=== PATIENT | male | born 1940 | race Caucasian/White ===

== ENCOUNTER → 2016-08-09 | Outpatient (CLI) | payer OTHER, BC | LOC: FIMAGING 17:01 | PROVIDERS: ATTEND Nurse Practitioner Family | DX: R68.89 Other general symptoms and signs (principal); R05 Cough; R51 Headache ==

== ENCOUNTER 2018-01-31 11:08 | Emergency (ER) | payer OTHER, BC ==
--- NOTE | 2018-01-31 11:19 | EDPHY ---
H & P Stated Complaint: HX AFIB IRREGULAR HR LAST FFEW DAYS Time Seen by Provider: 01/31/18 11:17 - Personal History Current Tetanus Diphtheria and Acellular Pertussis (TDAP): Unsure - Medical/Surgical History Hx Asthma: No Hx Chronic Respiratory Disease: No Hx Diabetes: No Hx Cardiac Disease: Yes Hx Renal Disease: No Hx Cirrhosis: No Hx Alcoholism: No Hx HIV/AIDS: No Hx Splenectomy or Spleen Trauma: No Other PMH: medical- afib, arthritis, HLD. surgical- ablation - Social History Smoking Status: Never smoked Constitutional: Initial Vital Signs Temperature (C) 36.3 C 01/31/18 11:11 Heart Rate 55 L 01/31/18 11:11 Respiratory Rate 18 01/31/18 11:11 Blood Pressure 133/73 H 01/31/18 11:11 O2 Sat (%) 96 01/31/18 11:11 O2 Delivery Mode Room Air Allergies/Adverse Reactions: No Allergies [NKDA] Allergy (Verified 01/31/18 11:09) Home Medications: Medication Instructions Recorded Aspirin 81mg (OTC) 09/20/13 Atorvastatin Calcium 01/31/18 Pen Vk 250mg (*) 01/31/18 Medical Decision Making ED Course/Re-evaluation: CHIEF COMPLAINT: Fatigue, irregular heart rate HISTORY OF PRESENT ILLNESS: The patient is a 77 y/o male with a history of atrial fibrillation requiring an ablation complaining of fatigue and an irregular heart rate, onset two days ago. For the past two days the patient did not feel normal and thought that he was in a-fib again as he thought there was an irregular heart rate. These symptoms were similar to prior a-fib episodes. This morning he felt okay and didn't feel like there was an irregular heart rate. Due to his symptoms his PCP , Dr. Arcos, advised the patient to present to the emergency department. Denies headache, chest pain, shortness of breath, abdominal pain, urinary or bowel complaints, numbness, paresthesias, fevers. REVIEW OF SYSTEMS: A comprehensive 10 system review of systems is otherwise negative aside from elements mentioned in the history of present illness and medical decision making. PHYSICAL EXAM: HR, BP, O2 Sat, RR. Temp noted General Appearance: Alert, well hydrated, appropriate, and non-toxic appearing. Head: Atraumatic without scalp tenderness or obvious injury Eyes: Pupils equal, round, reactive to light and accommodation, EOMI, no trauma , no injection. Ears: Clear bilaterally, no perforation, normal landmarks Nose: Atraumatic, no rhinorrhea, clear. Throat: There is no erythema or exudates, no lesions, normal tonsils, mucus membranes moist. Neck: Supple, 2+ carotid upstroke, nontender, no lymphadenopathy. Respiratory: No retractions, no distress, no wheezes, and no accessory muscle use. Lungs are clear to auscultation bilaterally. Cardiovascular: Regular rate and rhythm, no murmurs, rubs, or gallops. Bilateral carotid, radial, dorsalis pedis, and posterior tibial pulses intact. Good capillary refill all extremities. Gastrointestinal: Abdomen is soft, nontender, non-distended, no masses, no rebound, no guarding, no peritoneal signs. Musculoskeletal: Normal active ROM of all extremities, atraumatic. Neurological: Alert, appropriate, and interactive. The patient has normal DTRs and non-focal cranial nerves, motor, sensory, and cerebellar exam. Skin: No rashes, good turgor, no nodules on palpation. Past medical history: Atrial fibrillation, arthritis, hyperlipidemia Past surgical history: Ablation (15 years ago) Family history: Denies Social history: at bedside, lives in [place], retired DIAGNOSTICS/PROCEDURES/CRITICAL CARE TIME: EKG: The 12 lead EKG was interpreted by myself as sinus rhythm with a rate of 60 , atrial premature complex, nonspecific intraventricular conduction delay. See hard copy and/or "tracemaster" electronic copy for interpretation. DIFFERENTIAL DIAGNOSIS: The differential diagnosis for the patient's fatigue included but was not limited to peripheral and central causes of vertigo, orthostatic causes including dehydration, cardiogenic and neurogenic causes, and blood loss. MEDICAL DECISION MAKING: The patient is a 77 y/o male with a history of atrial fibrillation requiring an ablation presenting with fatigue and an irregular heart rate, onset two days ago. He is currently asymptomatic. On exam he has a regular exam with a regular cardiac exam. Labs including a Chem8 and IStat and EKG ordered. 1118: I interpreted patient's EKG as sinus rhythm with a rate of 60. 1202: I consulted with Dr. Thomas, specification manager, regarding this patient. She agrees with my plan for outpatient follow up with Dr. Cox. 1204: Patient's labs are unremarkable. I have advised him to follow up with Dr. Cox, specification manager, for further work up. Patient's symptoms are consistent with premature atrial contractions and possible atrial fibrillation at home. Return precautions provided; patient is comfortable with this plan. - Data Points Laboratory Results: 01/31/18 01/31/18 11:41 11:41 POC Hgb 16.0 gm/dL gm/dL (13.7-17.5) POC Hct 47 % % (40-51) POC Sodium 139 mEq/L mEq/L (135-145) POC Potassium 4.2 mEq/L mEq/L (3.3-5.0) POC Chloride 104 mEq/L mEq/L (97-110) POC BUN 15 mg/dL mg/dL (7-23) POC Creatinine 0.7 mg/dL mg/dL (0.7-1.3) POC Glucose 84 mg/dL mg/dL (70-100) POC Troponin I 0.01 ng/mL ng/mL (0.00-0.08) Point of Care Test Results: Chemistry 01/31/18 01/31/18 11:41 11:41 POC Sodium 139 mEq/L mEq/L (135-145) POC Potassium 4.2 mEq/L mEq/L (3.3-5.0) POC Chloride 104 mEq/L mEq/L (97-110) POC BUN 15 mg/dL mg/dL (7-23) POC Creatinine 0.7 mg/dL mg/dL (0.7-1.3) POC Glucose 84 mg/dL mg/dL (70-100) POC Troponin I 0.01 ng/mL ng/mL (0.00-0.08) ISTAT H&H 01/31/18 11:41 POC Hgb 16.0 gm/dL gm/dL (13.7-17.5) POC Hct 47 % % (40-51) Departure - Departure Disposition: Home, Routine, Self-Care Clinical Impression: PAC (premature atrial contraction), possible atrial-fibrillation at home Fatigue Qualifiers: Fatigue type: other Qualified Code(s): R53.83 - Other fatigue Condition: Good Instructions: Fatigue (ED), Premature Atrial Contractions (ED) Additional Instructions: 1. Follow-up with your primary doctor within 72 hours. 2. Return to the Emergency Department for fever, chest pain, shortness of breath , increasing pain or other worsening of condition. 3. Follow up with a specification manager for further testing, as soon as possible, within one week. We would be happy to reevaluate you and observe you in the hospital at any time. Referrals: Oscar Arcos DO [Primary Care Provider] - As per Instructions Ha Cox MD [Medical Doctor] - As per Instructions Report Scribed for: Tyrone Us Report Scribed by: Pita Keller Date of Report: 01/31/18 Time of Report: 11:21
--- NOTE | 2018-01-31 11:53 | CPEKG ---
Test Reason : OPEN Blood Pressure : / mmHG Vent. Rate : 060 BPM Atrial Rate : 061 BPM P-R Int : 155 ms QRS Dur : 158 ms QT Int : 437 ms P-R-T Axes : 130 206 006 degrees QTc Int : 437 ms Sinus rhythm Atrial premature complex Nonspecific intraventricular conduction delay Confirmed by Tyrone Us ([id number]) on 01/31/2018 11:53:39 AM Referred By: Confirmed By:Tyrone Us
[2018-01-31 12:29] VITALS: BP 122/69
== END 2018-01-31 12:28 | disposition home or self-care (01) ==
DX: I49.1 Atrial premature depolarization (principal); R53.83 Other fatigue
CPT/HCPCS: 82435-PO; 82565-PO; 82947-PO; 84132-PO; 84295-PO; 84484-PO; 84520-PO; 85014-PO

== ENCOUNTER → 2018-03-30 | Outpatient (CLI) | payer OTHER, BC | LOC: FIMAGING 09:39 | PROVIDERS: ATTEND Family Medicine | DX: R05 Cough (principal); M17.12 Unilateral primary osteoarthritis, left knee; M11.262 Other chondrocalcinosis, left knee ==

== ENCOUNTER → 2018-05-05 | Outpatient (CLI) | payer OTHER, BC | LOC: BHLMT 14:00 | PROVIDERS: ATTEND Internal Medicine Interventional Cardiology | DX: I47.2 Ventricular tachycardia (principal) | CPT/HCPCS: 78452; 93017; A9500; J2785 ==

== ENCOUNTER → 2018-05-13 | Outpatient (CLI) | payer OTHER, BC | LOC: FCPNEURO 23:59 | PROVIDERS: ATTEND Psychiatry & Neurology Sleep Medicine | DX: G47.33 Obstructive sleep apnea (adult) (pediatric) (principal) ==

== ENCOUNTER 2018-05-21 06:50 | Day surgery (SDC) | payer OTHER, BC ==
[2018-05-21] MEDS ORDERED: diphenhydrAMINE 25 MG CAP PO ONE (07:01)
[2018-05-21] MEDS ORDERED: FAMOTIDINE 20 MG TAB PO ONE (07:01)
[2018-05-21] MEDS ORDERED: ASPIRIN EC 325 MG TAB PO ONE (07:01)
[2018-05-21] MEDS ORDERED: DIAZEPAM 5 MG TAB PO ONE (07:01)
[2018-05-21] MEDS ORDERED: NS 1,000 ML IV ONE (07:01)
[2018-05-21 07:38] LABS: PLATELET COUNT 279 10^3/uL (150-400)
[2018-05-21 07:47] LABS: INR 1.06 (0.83-1.16)
--- NOTE | 2018-05-21 09:36 | PDHPUP ---
History & Physical Update H&P update statement: This history and physical update is based on an assessment of the patient which was completed after admission or registration (within 24 hours), but prior to the surgery/procedure. H&P update: H&P reviewed & patient examined, no change in patient's condition since H&P completed
--- NOTE | 2018-05-21 09:36 | PDPROPOC ---
Sedation Plan of Care Sedation Plan of Care: vital signs stable, mental status noted, patient educated of risks, benefits, alternatives, patient can tolerate sedation ASA Classification: ASA 2 Planned drugs: fentanyl, midazolam Mallampati Score: Class 2 Mallampati Reference Image: Patient passed 3-3-2 rule?: Yes
[2018-05-21] MEDS ORDERED: fentaNYL 100 MCG/2 ML INJ ONE (09:42)
[2018-05-21] MEDS ORDERED: MIDAZOLAM 2 MG/2 ML VIAL ONE (09:42)
[2018-05-21] MEDS ORDERED: IOPAMIDOL (ISOVUE-370) 150 ML BTL IV ONE (09:42)
[2018-05-21] MEDS ORDERED: LIDOCAINE 1% 300 MG/30 ML SDV ONE (09:42)
--- NOTE | 2018-05-21 11:29 | CPIP ---
DATE OF PROCEDURE: 05/21/2018 PROCEDURE: 1. Coronary angiography. 2. Left ventriculography. INDICATION: Abnormal nuclear stress test with apical ischemia. ACCESS: Patient was prepped and draped in sterile fashion. 1% lidocaine was used to anesthetize the right inguinal region. A 6-Mongolian introducer sheath was placed selectively into the right common fe moral artery via modified Seldinger technique. CORONARY ANGIOGRAPHY: A 6-Mongolian JL4 was advanced to left main coronary artery and images obtained. The left main coronary artery bifurcated into an LAD and circumflex coronary arteries. The left josh n coronary artery appeared normal. The left anterior descending coronary artery gave rise to 2 diago nal branches. The left anterior descending coronary artery had a long segmental 20% to 30% stenosis in the mid vessel just after the takeoff of the first diagonal artery. The circumflex coronary arter y is a large vessel, but was nondominant. Circumflex coronary artery had mild luminal irregularities throughout. There was no stenosis greater than 10%. A 6-Mongolian JR4 was advanced to the right coron keyona artery and images obtained. The right coronary artery was dominant. The right coronary artery h ad a discrete 20% to 30% percent stenosis in the distal vessel. LEFT VENTRICULOGRAPHY: A 6-Mongolian pigtail catheter was advanced in the left ventricle and images obt ained. Left ventricle was normal in size. The left ventricle had reduced left ventricular systolic function. The estimated ejection fraction was 45% to 50% . COMPLICATIONS: None. CONCLUSIONS: 1. Mild coronary artery disease without flow limitation. 2. Mildly reduced left ventricular systolic function with estimated ejection fraction of 45% to 50%. 3. Plan is for medical management. /[id number]/MODL
--- NOTE | 2018-05-22 17:24 | CPEKG ---
Test Reason : OPEN Blood Pressure : / mmHG Vent. Rate : 060 BPM Atrial Rate : 060 BPM P-R Int : 146 ms QRS Dur : 149 ms QT Int : 420 ms P-R-T Axes : 081 199 -17 degrees QTc Int : 420 ms Sinus rhythm RBBB Confirmed by Jaun Salazar ([id number]) on 05/22/2018 5:24:19 PM Referred By: Confirmed By:Jaun Salazar
== END 2018-05-21 12:50 | disposition home or self-care (01) ==
LOC: FCATH 06:50
PROVIDERS: ATTEND Internal Medicine Cardiovascular Disease
PROC: 4A023N7 Measurement of Cardiac Sampling and Pressure, Left Heart, Percutaneous Approach (ICD-10-PCS; principal; 2018-05-21)
PROC: B2151ZZ Fluoroscopy of Left Heart using Low Osmolar Contrast (ICD-10-PCS; principal; 2018-05-21)
PROC: B2111ZZ Fluoroscopy of Multiple Coronary Arteries using Low Osmolar Contrast (ICD-10-PCS; principal; 2018-05-21)
DX: I25.10 Atherosclerotic heart disease of native coronary artery without angina pectoris (principal); I49.3 Ventricular premature depolarization; Z96.21 Cochlear implant status; Z86.79 Personal history of other diseases of the circulatory system
CPT/HCPCS: C1760; J1644; J2250; J3010; Q9967

== ENCOUNTER 2018-06-10 07:25 | Observation (INO) | payer OTHER, BC ==
--- NOTE | 2018-05-28 16:18 | GHP ---
DATE OF ADMISSION: 06/10/2018 He will be an a.m. admission for surgery on June 10, 2018. PROBLEM: Left knee severe degenerative arthritis. HISTORY OF PRESENT ILLNESS: The patient is a 77-year-old man admitted for a left total knee arthropl asty. He has a several month history of progressive pain and swelling in his left knee. The knee be came painful after working out on a treadmill. He feels like the knee is going to collapse. It is p ainful going up and down stairs. Evaluation shows severe left patellofemoral arthritis. He is admit maureen for a left total knee arthroplasty. PAST MEDICAL HISTORY: He is treated for elevated cholesterol. He also takes finasteride for prostat e problems. He has had a previous TUR. He has a history of atrial fibrillation, which was treated w ith an ablation. Dr. Cox is his agriculture scientist. No history of stents, DVT, hepatitis, or MRSA staph i nfections, or bleeding problems. He recently had a sleep study and was told that he had sleep apnea. He is in the process of getting a CPAP machine. CURRENT MEDICATIONS: Atorvastatin 20 mg per day, finasteride 5 mg per day, tamsulosin 0.4 mg per day . He also takes a full-size aspirin daily, but he stopped it 5 days prior surgery. ALLERGIES: Drug allergies: Epinephrine provoked atrial fibrillation attack. Metal allergy: None. Latex allergy: None. SOCIAL HISTORY: The patient is . He is retired. He does not smoke cigarettes and rarely dri nks alcohol. PHYSICAL EXAMINATION: VITAL SIGNS: Height 6 feet, weight 169 pounds. BMI 22.9. HEENT: Eyes: Con junctivae and sclerae are clear. Pupils are round and reactive. Mouth: Good oral hygiene. No loos e teeth. CHEST: Clear. HEART: Regular rhythm. No murmurs. EXTREMITIES: Pertinent findings are limited to his left knee. He has a large effusion. He lacks 10 degrees of full extension and flexes to 110 degrees. His collateral ligaments are stable. He has very coarse patellofemoral crepitation with active knee extension. IMAGING: His films show severe patellofemoral arthritis. IMPRESSION ON ADMISSION: 1. Left knee severe arthritis primarily involving the patellofemoral joint. He is prepared for a le ft total knee arthroplasty. 2. History of atrial fibrillation. 3. Treatment for elevated cholesterol. 4. History of prostate problems, status post transurethral resection of the prostate. 5. History of a right total ankle arthroplasty. PLAN: He will undergo a left total knee arthroplasty. The surgery has been described to him, includ ing the risks, complications, expectations, and recovery time. I have stressed the importance of pos toperative physical therapy. Advised him that a small percentage of people do not get a satisfactory result with a total knee replacement. All his questions have been answered and he consents to surge ry. /[id number]/MODL
[~2018-06-10 07:25] MED LIST: POVIDONE-IODINE 20 ML in SODIUM CL IRRIG SOLUTION 500 ML IRR ONE; TRANEXAMIC ACID 1,000 MG in NS 100 ML IV ONE; TRANEXAMIC ACID 3,000 MG in NS (SYRINGE) 50 ML IRR ONE
[2018-06-10] MEDS ORDERED: ceFAZolin 2 GM/DEXTROSE 100 ML IV ONE (08:00)
[2018-06-10] MEDS ORDERED: ONDANSETRON 4 MG/2 ML VIAL IVP ONE (08:00)
[2018-06-10] MEDS ORDERED: DEXAMETHASONE 4 MG/ML VIAL IVP ONE (08:00)
[2018-06-10] MEDS ORDERED: ACETAMINOPHEN 325 MG TAB PO ONE (08:00)
[2018-06-10] MEDS ORDERED: FAMOTIDINE 20 MG TAB PO ONE (08:00)
[2018-06-10] MEDS ORDERED: GABAPENTIN 300 MG CAP PO ONE (08:00)
[2018-06-10] MEDS ORDERED: LIDOCAINE 1% 2 ML INJ ID PRN (08:01)
[2018-06-10] MEDS ORDERED: LR 1,000 ML IV ONE (08:01)
[2018-06-10] MEDS ORDERED: TRANEXAMIC ACID 3,000 MG in NS (SYRINGE) 50 ML IRR ONE (09:00)
--- NOTE | 2018-06-10 09:02 | PDANEPAE ---
ANE Past Medical History - Cardiovascular History Hx Hypertension: No Hx Arrhythmias: Yes Hx Chest Pain: No Hx Coronary Artery / Peripheral Vascular Disease: No Hx CHF / Valvular Disease: No Hx Palpitations: No Cardiovascular History Comment: hx Afib - Pulmonary History Hx COPD: No Hx Asthma/Reactive Airway Disease: No Hx Recent Upper Respiratory Infection: No Hx Oxygen in Use at Home: No Hx Sleep Apnea: Yes Sleep Apnea Screening Result - Last Documented: Positive Pulmonary History Comment: [place] +, recent disgnosis - in the process of getting a Cpap - Neurologic History Hx Cerebrovascular Accident: No Hx Seizures: No Hx Dementia: No - Endocrine History Hx Diabetes: No - Renal History Hx Renal Disorders: Yes Renal History Comment: hx of BPH - Liver History Hx Hepatic Disorders: No - Neurological & Psychiatric Hx Hx Neurological and Psychiatric Disorders: No - Cancer History Hx Cancer: No - Congenital Disorder History Hx Congenital Disorders: No - GI History Hx Gastrointestinal Disorders: No - Other Health History Other Health History: cochlear implant on right, wears bilateral hearing aids. wears glasses. very dry skin - Chronic Pain History Chronic Pain: No - Surgical History Prior Surgeries: TURP 2010. right ankle replacement. ablations for A fib. cochlear implant on right. oral surgery for dental implants. appendectomy ANE Review of Systems Review of Systems: - Exercise capacity METS (RN): 4 METS ANE Patient History - Allergies Allergies/Adverse Reactions: epinephrine Allergy (Verified 06/03/18 10:34) Afib recurrence when given for dental procedure - Home Medications Home Medications: Aspirin [Aspirin 81mg (*)] 263 mg PO DAILY 05/21/18 [Last Taken 06/05/18] Atorvastatin Calcium [Lipitor 20 mg (*)] 20 mg PO DAILY 05/21/18 [Last Taken 01/18 21:00] C/E/Zn/Cu/OM3/DHA/EPA/LUT/ZEAX [Preservision Areds 2 Softgel] 1 each PO BID [Last Taken 06/05/18] Cholecalciferol Vit D3 [Vitamin D3 2000 units tab (OTC)] 4,000 units PO DAILY [Last Taken 06/05/18] Finasteride [Proscar 5 MG (*)] 5 mg PO DAILY 05/21/18 [Last Taken 06/09/18 21:00 ] Herbals/Supplements -Info Only 1 ea PO DAILY 05/21/18 [Last Taken 06/05/18] Triamcinolone 0.1% [Triamcinolone 0.1% Cream (*)] 1 kenan TP BID 05/21/18 [Last Taken 06/09/18] - Smoking Hx Smoking Status: Never smoked - Family Anes Hx Family Hx Anesthesia Complications: none ANE Labs/Vital Signs - Vital Signs Height: 182.88 cm Weight: 77.111 kg ANE Physical Exam - Airway Neck exam: FROM Mallampati Score: Class 1 Mouth exam: normal dental/mouth exam - Pulmonary Pulmonary: clear to auscultation - Cardiovascular Cardiovascular: regular rate and rhythym - ASA Status ASA Status: II ANE Anesthesia Plan Anesthesia Plan: spinal Regional Anesthesia: adductor canal FNB
[2018-06-10] MEDS ORDERED: TRANEXAMIC ACID 3,000 MG/50 ML BAG IRR ONE (09:39)
[2018-06-10] MEDS ORDERED: VANCOMYCIN 1 GM VIAL ONE ×2 (09:39→10:57)
[2018-06-10] MEDS ORDERED: ceFAZolin 1 GM/5 ML SYR ONE (09:40)
--- NOTE | 2018-06-10 10:05 | PDHPUP ---
History & Physical Update H&P update statement: This history and physical update is based on an assessment of the patient which was completed after admission or registration (within 24 hours), but prior to the surgery/procedure. H&P update: H&P reviewed & patient examined
[2018-06-10] MEDS ORDERED: MIDAZOLAM 2 MG/2 ML VIAL IVP ONE (10:24)
[2018-06-10] MEDS ORDERED: MIDAZOLAM 2 MG/2 ML VIAL ONE (10:28)
[2018-06-10] MEDS ORDERED: ROPIVACAINE IU ONE (10:30)
[2018-06-10] MEDS ORDERED: KETOROLAC TROMETHAMINE IU ONE (10:30)
[2018-06-10] MEDS ORDERED: PROPOFOL/EMULSION 500 MG/50 ML BOTTLE IV ONE (10:34)
[2018-06-10] MEDS ORDERED: BUPIVACAINE/DEXTROSE 7.5MG/ML 2 ML SPINAL AMP SP ONE (10:36)
[2018-06-10] MEDS ORDERED: PHENYLEPHRINE HCL 100 MCG/ML SYR ONE (11:04)
[2018-06-10] MEDS ORDERED: ePHEDrine SULFATE 25 MG/5 ML SYR ONE (11:04)
[2018-06-10] MEDS ORDERED: PHENYLEPHRINE 10 MG/ML SDV ONE (11:19)
--- NOTE | 2018-06-10 11:35 | POSTANESTH ---
Post Anesthetic Evaluation Cardiovascular Status: Normal, Stable Respiratory Status: Normal, Stable Level of Consciousness/Mental Status: Can Participate in Eval Pain Control: Adequate, Prn Tx Ordered Nausea/Vomiting Control: Adequate, Prn Tx Ordered Complications Possibly Related to Anesthesia: None Noted
[2018-06-10] MEDS ORDERED: ROPIVACAINE HCL 150 MG/30 ML INJ ONE (12:07)
[2018-06-10] MEDS ORDERED: MEPERIDINE 25 MG/0.5 ML AMP IVP PRN (12:20)
[2018-06-10] MEDS ORDERED: ALBUTEROL 3 ML DEYVIAL IH PRN (12:20)
[2018-06-10] MEDS ORDERED: HYDROmorphONE/DILAUDID 2 MG/ML INJ IVP PRN (12:20)
[2018-06-10] MEDS ORDERED: DIAZEPAM 5 MG/ML 1 ML SYR IVP PRN (12:20)
[2018-06-10] MEDS ORDERED: ONDANSETRON 4 MG/2 ML VIAL IVP PRN ×2 (12:20→12:52)
[2018-06-10] MEDS ORDERED: PHENYLEPHRINE HCL 100 MCG/ML SYR IVP PRN (12:20)
[2018-06-10] MEDS ORDERED: PROMETHAZINE HCL 25 MG/ML INJ IVP PRN ×2 (12:20→12:52)
[2018-06-10] MEDS ORDERED: LR 500 ML IV PRN (12:20)
[2018-06-10] MEDS ORDERED: NALOXONE HCL 0.4 MG/ML INJ IVP PRN (12:20)
[2018-06-10] MEDS ORDERED: fentaNYL 100 MCG/2 ML INJ IVP PRN (12:20)
--- NOTE | 2018-06-10 12:30 | POSTOPPROG ---
Post Op Note Date of Operation: 06/10/18 Surgeon: Brooks Huerta Quality Assurance Lab Technician: Bill Anesthesiologist: Juan Antonio Lopez Anesthesia: IV Sedation, Spinal Post-op Diagnosis: left knee arthritis Procedure: L TKA Inf/Abcess present in the surg proc area at time of surgery?: No EBL: 50-100 (ACB in PACU)
[2018-06-10] MEDS ORDERED: DIPHENOXYLATE/ATROPINE LOMOTIL 1 TAB PO PRN (12:52)
[2018-06-10] MEDS ORDERED: METOCLOPRAMIDE 10 MG/2 ML VIAL IVP PRN (12:52)
[2018-06-10] MEDS ORDERED: BISACODYL 10 MG SUPP PR PRN (12:52)
[2018-06-10] MEDS ORDERED: LACTULOSE 20 GM/30 ML UDCUP PO PRN (12:52)
[2018-06-10] MEDS ORDERED: CYCLOBENZAPRINE 10 MG TAB PO PRN (12:52)
[2018-06-10] MEDS ORDERED: PROMETHAZINE HCL 25 MG SUPPR PR PRN (12:52)
[2018-06-10] MEDS ORDERED: ONDANSETRON DISINTEGRATING 4 MG TAB PO PRN (12:52)
[2018-06-10] MEDS ORDERED: diphenhydrAMINE 25 MG CAP PO PRN (12:52)
[2018-06-10] MEDS ORDERED: NS 500 ML IV PRN (12:52)
[2018-06-10] MEDS ORDERED: MAGNESIUM HYDROXIDE 30 ML UDCUP PO PRN (12:52)
[2018-06-10] MEDS ORDERED: TEMAZEPAM 15 MG CAP PO PRN (12:52)
[2018-06-10] MEDS ORDERED: traMADol 50 MG TAB PO PRN (12:52)
[2018-06-10] MEDS ORDERED: POLYETHYLENE GLYCOL 3350 17 GM PKT PO PRN (12:52)
[2018-06-10] MEDS ORDERED: oxyCODONE IR 5 MG TAB PO PRN (12:52)
[2018-06-10] MEDS ORDERED: LR 1,000 ML IV SCH (13:00)
[2018-06-10] MEDS: FINASTERIDE 5 MG TAB PO SCH (16:16)
--- NOTE | 2018-06-10 16:34 | GOP ---
DATE OF OPERATION: 06/10/2018 SURGEON: Brooks Huerta MD INTERIOR DESIGN COORDINATOR: Rambo Fernandez and Nikolay Milton. ANESTHESIA: Combination of Marcaine spinal, IV sedation, and adductor canal block by Dr. Tanisha Lopez. PREOPERATIVE DIAGNOSIS: Left knee severe degenerative arthritis. POSTOPERATIVE DIAGNOSIS: Left knee severe degenerative arthritis. PROCEDURE PERFORMED: On 06/10/2018, a left total knee arthroplasty. FINDINGS: DESCRIPTION OF PROCEDURE: The patient was given 2 g of IV Ancef preoperatively within 60 minutes of surgery. He also received 1000 mg of IV tranexamic acid. He was placed on the operating room table and given spinal anesthesia with Marcaine by Dr. Tanisha Lopez. He was then placed supine and given IV sed ation. A Dick catheter was not used. He wore a FELICITY stocking and SCD on the nonoperative leg. His left lower extremity was prepped with ChloraPrep from the upper thigh tourniquet to the tips of the t oes. It was draped free using sterile sheets, stockinette, and Ioban plastic adhesive drape. The lo wer leg was wrapped with compressive Coban. The leg was exsanguinated with elevation and a 6-inch co mpressive wrap, and the pneumatic tourniquet was inflated to 250 mmHg. The World Health Organization time-out was performed to verify the correct patient identity and the c orrect surgical side and site. The [place] time-out was also performed. The OpinionLabayo leg holding device was sterilely attached to the operating room table and used throughout the procedure to help position the knee. A straight midline incision made centered on the patella. Subcutaneous tissues were sharply divided, and hemostasis was obtained using electrocautery. A media l subcutaneous flap was developed, and capsule and synovium were opened in medial parapatellar fashio n. Extensive degenerative changes were present, particularly in the patellofemoral joint. He had de ep ridges eroded onto the patella and the lateral femoral condyle. His medial capsule and periosteum were elevated off the rim of the medial tibial plateau all the way around to the posteromedial corne r. His medial collateral ligament was just lightly released. In order to improve exposure, his patella was prepared first. The original thickness of the patella was measured. Large peripheral osteophytes were removed. I cut a flat surface on the back of the ruchi palomino. He was sized for a 41 mm round resurfacing component. I removed enough bone from the patella such that the remaining bone plus the thickness of the patellar component recreated the original thi ckness of the patella. The composite thickness was 24 mm. The intramedullary alignment guide system was used to set up the distal femoral cut. The distal femu r was cut in 5 degrees of valgus. Because of a preoperative flexion contracture and because I was us ing the posterior stabilized femoral component, I made a +2 mm cut on the distal femur. The sizing j ig was used to determine proper femoral sizing. He was a true size 7 without a shift. The 5-in-1 cu tting block was applied, and the anterior and posterior condylar cuts and chamfer cuts were made. Th e final jig was used to remove the central portion of the distal femur to accommodate the posterior s tabilized femoral component. I was careful to determine proper rotation. It was difficult because h is trochlear groove was badly deformed from arthritis. Each cut was checked for accuracy. The femur was sized for a size 7 posterior stabilized component. Next, the tibia was prepared. The proximal tibial cut was made using the extramedullary alignment gu kristal system. The cut was made in a few degrees of posterior slope. I was careful to achieve proper v arus/valgus alignment and proper rotation. The posterior compartment was cleared of meniscal remnant s. Osteophytes were removed from the back of the femoral condyles. The flexion and extension gaps w ere a little bit too tight. I went back and cut 2 more millimeters off the proximal tibia. At this point, the flexion and extension gaps were equal and rectangular. The tibia was sized for a size 6 c omponent. With the trial components in place, I selected a 10 mm polyethylene posterior stabilized t ibial insert. The knee came to full extension and flexed to 130 degrees. His collateral ligaments w ere stable and balanced in 90 degrees of flexion and full extension. The trial patellar button was a pplied, and tracking was checked. Tracking was excellent without any digital pressure. 40 cc of the joint anesthetic cocktail without epinephrine was injected into the posterior capsule, t he quadriceps muscle and tendon areas, and the subcutaneous tissues along the skin edges. The surfaces were prepared for cementing. They were carefully cleaned with the pulsating lavage irri gation and thoroughly dried. The CarboJet device was used to blow dry the cancellous surfaces. A do uble batch of high viscosity methylmethacrylate cement with 2 g of powdered vancomycin added was mixe d. While it was still in a doughy state, all 3 components were cemented in place. Excess cement was removed before it hardened. The 10 mm trial tibial insert was re-tried and was the proper thickness. The actual component was in serted and locked into place. The knee was thoroughly irrigated one final time with a dilute Betadin e solution. The tourniquet was deflated, and the total tourniquet time was 63 minutes. 50 cc of tranexamic acid was irrigated into the wound. The wound was packed and wrapped with a compressive wrap for several m inutes. The vastus medialis portion of the extensor mechanism was repaired with several interrupted figure-of -eight #2 FiberWire sutures. The capsule and synovium were closed first with multiple interrupted fi [id number] PDS sutures, followed by a running #2 barbed Ethicon Stratafix PDO suture. Subcutane ous tissues were closed with a running 0 barbed Ethicon Stratafix Monoderm suture. The skin was clos ed with a running 3-0 barbed Stratafix Monoderm subcuticular suture. The skin was sealed with 1/2-in ch Steri-Strips. The wound was covered with a large Mepilex waterproof dressing and wrapped with a K erlix and 6-inch compressive wrap. A long-leg FELICITY stocking and SCD were applied, followed by the neighborhood coordinator ling device. The patient wore a stocking and SCD on the opposite leg during the procedure. The sacr al Mepilex dressing was applied. I used a size 7 Jimenes and Nephew cemented Oxinium posterior stabilized femoral component, size 6 ceme nted tibial base plate, a 10 mm posterior stabilized tibial insert, and a 41 mm cemented round all-po lyethylene resurfacing patellar component. Estimated blood loss following deflation of the tourniquet was about 100 cc. The sponge and needle count were correct on 2 occasions. He was awakened from anesthesia, transferred to his hospital [facility], and taken to PACU in satisfactor y condition. There were no recognized intraoperative complications. In the PACU, for additional pos toperative pain control, Dr. Lopez performed an adductor canal block with an indwelling catheter. Rambo Fernandez and Nikolay Milton acted as surgical assistants. Their assistance was a medical necess ity. /[id number]/MODL
[2018-06-10] MEDS: ACETAMINOPHEN 325 MG TAB PO SCH (18:02)
[2018-06-10] MEDS: KETOROLAC 15 MG/1 ML SDV IVP SCH (18:03)
[2018-06-10] MEDS: SENNOSIDES/DOCUSATE SODIUM TAB PO SCH (20:15)
[2018-06-10] MEDS: PRESERVISION AREDS2 FORMULA EYE VIT 1 EACH PO SCH (20:16)
[2018-06-10] MEDS: FAMOTIDINE 20 MG TAB PO SCH (20:16)
[2018-06-10] MEDS: ASPIRIN 325 MG TAB PO SCH (20:17)
[2018-06-10] MEDS: ceFAZolin 2 GM/DEXTROSE 100 ML IV SCH (20:17)
[2018-06-10] MEDS: TRIAMCINOLONE 0.1% 15 GM CRTUBE TP SCH (21:27)
[2018-06-11] MEDS: ACETAMINOPHEN 325 MG TAB PO SCH ×3 (00:07→12:22)
[2018-06-11] MEDS: KETOROLAC 15 MG/1 ML SDV IVP SCH ×2 (00:07→05:48)
[2018-06-11] MEDS: ceFAZolin 2 GM/DEXTROSE 100 ML IV SCH (02:41)
--- NOTE | 2018-06-11 07:14 | SOAPPROG ---
SOAP Progress Note Assessment/Plan: Assessment: Afebrile. Awake and alert. The patient walked in the [place] last night. His blood pressure was a little low during the night, but it is stable this morning. His dressing is dry. H&H are good. Postop films look excellent. Plan: Physical therapy today for walking and stairs. Long leg alignment film. Discharge later today. He will go to outpatient physical therapy in [place], [place]. 06/11/18 07:13 Objective: Vital Signs Temp Pulse Resp BP Pulse Ox 36.7 C 63 16 100/50 L 92 06/11/18 04:00 06/11/18 04:00 06/11/18 04:00 06/11/18 04:00 06/11/18 04:00 Laboratory Results 06/11/18 04:16 06/10/18 06/11/18 06/12/18 05:59 05:59 05:59 Intake Total 2790 Output Total 850 600 Balance 1940 -600 ICD10 Worksheet Patient Problems: Problems Problem Status Onset Osteoarthritis of left knee Acute
[2018-06-11] MEDS ORDERED: FERROUS SULFATE 325 MG TAB PO SCH (08:00)
--- NOTE | 2018-06-11 08:14 | GDS ---
ADMISSION DIAGNOSIS: Left knee severe degenerative arthritis. DISCHARGE DIAGNOSIS: Left knee severe degenerative arthritis. OPERATION PERFORMED: 06/20/2018, A left total knee arthroplasty. POSTOPERATIVE COMPLICATIONS: None. CONDITION ON DISCHARGE: Improved. DESCRIPTION OF HOSPITAL COURSE: The patient was admitted to the hospital on the morning of surgery. His CBC, electrolytes, BUN, and creatinine were all normal. The same day, under a combination of Ma rcaine spinal, IV sedation, and adductor canal block, he underwent a left total knee arthroplasty. P ostoperatively, he was treated with multimodal DVT prophylaxis, including aspirin. On the first post operative day, his hemoglobin and hematocrit were 12.6 and 38.6. He was seen by Physical Therapy and made good progress with ambulation and stairs. By the time of discharge, he was afebrile and was in dependent walking with a walker. DISPOSITION: The patient discharged to his home. He will go to outpatient physical therapy [facility] in [place], [place]. Continue aspirin 325 mg p.o. daily for 21 days. He has prescriptions for oxy codone, tramadol, and Celebrex for pain control. Use FELICITY stockings for 1 week. He may weightbear as tolerated on the left. I will see him back in the office on 06/25/2017. If there any problems, he is to call me at the office. /[id number]/MODL
[2018-06-11] MEDS ORDERED: LIPID EMULSION 20% 100 ML IV PRN (08:43)
[2018-06-11] MEDS: ASPIRIN 325 MG TAB PO SCH (08:49)
[2018-06-11] MEDS: FINASTERIDE 5 MG TAB PO SCH (08:49)
[2018-06-11] MEDS: SENNOSIDES/DOCUSATE SODIUM TAB PO SCH (08:49)
[2018-06-11] MEDS: PRESERVISION AREDS2 FORMULA EYE VIT 1 EACH PO SCH (08:49)
[2018-06-11] MEDS: FAMOTIDINE 20 MG TAB PO SCH (08:49)
[2018-06-11] MEDS ORDERED: ROPIVACAINE HCL 150 MG/30 ML INJ ONE (08:50)
[2018-06-11] MEDS: TRIAMCINOLONE 0.1% 15 GM CRTUBE TP SCH (08:51)
[2018-06-11] MEDS ORDERED: ATORVASTATIN CALCIUM 20 MG TAB PO SCH (09:00)
--- NOTE | 2018-06-11 09:16 | PDPAINCON ---
Pain Management Consultation Patient referred by : Bradley - Subjective Pain at rest (/10): 4 Pain with activity (/10): 4 Pain is: low, well controlled Activity: able to ambulate - Objective Technique: continuous peripheral nerve block Site: femoral Continuous infusion: ropivicaine Catheter site: clean, dry, intact, no erythema/edema/exudate Sensory and motor exam: consistent with block Vital signs: stable - Assessment/Plan Assessment/Plan: pain well-controlled, continue current mgmt (30 ml 0.5% Ropivacaine injected and AC catheter removed. Pt doing well and pain is under control.)
[2018-06-11 09:37] VITALS: BP 118/66
--- NOTE | 2018-06-11 11:07 | ASMTLACE ---
LACE Length of stay for Answers: 2 days current admission Acuity / Level of Answers: Yes Care: Did the patient have an inpatient admission? Comorbidities - select Answers: Other Notes: AFib; HLD all that apply # of Emergency department Answers: 1-2 visits in the last 6 months Score: 7 Date Signed: 06/11/2018 11:06 AM Electronically Signed By:ADAM Gabriel
--- NOTE | 2018-06-11 11:08 | ASMTCMCOM ---
CM Note CM Note Notes: Pt medically stable for d/c. PT rec home/outpatient. MD rec outpatient. No CM d/c needs identified. Date Signed: 06/11/2018 11:07 AM Electronically Signed By:ADAM Gabriel
== END 2018-06-11 13:00 | disposition home or self-care (01) ==
LOC: F3N 07:25 → INTOOBSV 07:25 → F3N 14:01
PROVIDERS: ADMIT Orthopaedic Surgery; ATTEND Orthopaedic Surgery
PROC: 0SRD069 Replacement of Left Knee Joint with Oxidized Zirconium on Polyethylene Synthetic Substitute, Cemented, Open Approach (ICD-10-PCS; principal; 2018-06-10 10:00)
DX: M17.11 Unilateral primary osteoarthritis, right knee (principal); N42.9 Disorder of prostate, unspecified; G47.33 Obstructive sleep apnea (adult) (pediatric); Z96.21 Cochlear implant status; Z86.79 Personal history of other diseases of the circulatory system
CPT/HCPCS: 27447; 73560; 77073; 88311; 97110; 97116; 97161; 97165; C1713; C1776; J0690; J1100; J1885; J2250; J2370; J2405; J2704; J2795; J3370

== ENCOUNTER 2018-08-26 10:04 | Day surgery (SDC) | payer OTHER, BC ==
[2018-08-26] MEDS ORDERED: ceFAZolin 2 GM/DEXTROSE 100 ML IV ONE (10:29)
[2018-08-26] MEDS ORDERED: LR 1,000 ML IV ONE (10:32)
[2018-08-26] MEDS ORDERED: BUPIVACAINE 0.5% 30 ML SDV ONE (10:34)
--- NOTE | 2018-08-26 11:02 | PDANEPAE ---
ANE History of Present Illness Laparoscopic IH repair ANE Past Medical History - Cardiovascular History Hx Hypertension: No Hx Arrhythmias: Yes Hx Chest Pain: No Hx Coronary Artery / Peripheral Vascular Disease: Yes Hx CHF / Valvular Disease: No Hx Palpitations: No Cardiovascular History Comment: Afib 15 YRS AGO. ABLATION - Pulmonary History Hx COPD: No Hx Asthma/Reactive Airway Disease: No Hx Recent Upper Respiratory Infection: No Hx Oxygen in Use at Home: No Hx Sleep Apnea: Yes Sleep Apnea Screening Result - Last Documented: Positive Pulmonary History Comment: [place] +, recent disgnosis. UNABLE TO TOLERATE C-PAP - Neurologic History Hx Cerebrovascular Accident: No Hx Seizures: No Hx Dementia: No - Endocrine History Hx Diabetes: No - Renal History Hx Renal Disorders: Yes Renal History Comment: BPH - Liver History Hx Hepatic Disorders: No - Neurological & Psychiatric Hx Hx Neurological and Psychiatric Disorders: No - Cancer History Hx Cancer: No - Congenital Disorder History Hx Congenital Disorders: No - GI History Hx Gastrointestinal Disorders: No - Other Health History Other Health History: cochlear implant on right, wears bilateral hearing aids. wears glasses. very dry skin - Chronic Pain History Chronic Pain: Yes (LT INGUINAL AREA) - Surgical History Prior Surgeries: LT TOTAL KNEE 06/10/18. TURP 2009. right ankle replacement. ablations for A fib. cochlear implant on right. oral surgery for dental implants. appendectomy ANE Review of Systems Review of systems is: negative Review of Systems: - Exercise capacity METS (RN): 4 METS ANE Patient History - Allergies Allergies/Adverse Reactions: epinephrine Allergy (Verified 06/03/18 10:34) Afib recurrence when given for dental procedure - Home Medications Home medications: home medication list seen and reviewed Home Medications: C/E/Zn/Cu/OM3/DHA/EPA/LUT/ZEAX [Preservision Areds 2 Softgel] 1 each PO BID [Last Taken 06/05/18] Cholecalciferol Vit D3 [Vitamin D3 2000 units tab (OTC)] 4,000 units PO DAILY [Last Taken 06/05/18] Herbals/Supplements -Info Only 1 ea PO DAILY 05/21/18 [Last Taken 06/05/18] - NPO status NPO Status: no food or drink >8 hours - Anes Hx Anes Hx: no prior problems - Smoking Hx Smoking Status: Never smoked - Family Anes Hx Family Anes Hx: none Family Hx Anesthesia Complications: none ANE Labs/Vital Signs - Vital Signs Vital Signs: reviewed preoperatively; see RN documention for details Height: 185.42 cm Weight: 76.657 kg ANE Physical Exam - Airway Neck exam: FROM Mallampati Score: Class 2 Mouth exam: normal dental/mouth exam - Pulmonary Pulmonary: no respiratory distress - Cardiovascular Cardiovascular: regular rate and rhythym - ASA Status ASA Status: III ANE Anesthesia Plan Anesthesia Plan: general endotracheal anesthesia
[2018-08-26] MEDS ORDERED: MIDAZOLAM 2 MG/2 ML VIAL IVP ONE (11:03)
[2018-08-26] MEDS ORDERED: MIDAZOLAM 2 MG/2 ML VIAL ONE (11:06)
--- NOTE | 2018-08-26 11:21 | POSTOPPROG ---
Post Op Note Date of Operation: 08/26/18 Surgeon: Mario Alberto Contreras Aerial Hurricane Hunter: JENN MAYERS Anesthesiologist: MANDEEP Anesthesia: GET(General Endotracheal) Pre-op Diagnosis: LIH Post-op Diagnosis: BIH Indication: PAIN Procedure: LAPBIH Findings: LARGE LIH, SMALLER DIRECT RIH Inf/Abcess present in the surg proc area at time of surgery?: No Depth: Organ Space EBL: Minimal Complications: 0
[2018-08-26] MEDS ORDERED: DEXAMETHASONE 4 MG/ML VIAL ONE (11:26)
[2018-08-26] MEDS ORDERED: LIDOCAINE 2% 100 MG/5 ML SYR ONE (11:26)
[2018-08-26] MEDS ORDERED: ONDANSETRON 4 MG/2 ML VIAL ONE (11:26)
[2018-08-26] MEDS ORDERED: ROCURONIUM 50 MG/5 ML VIAL ONE (11:26)
[2018-08-26] MEDS ORDERED: fentaNYL 250 MCG/5 ML INJ ONE (11:27)
[2018-08-26] MEDS ORDERED: PROPOFOL 200 MG/20 ML VIAL ONE (11:28)
[2018-08-26] MEDS ORDERED: PHENYLEPHRINE HCL 100 MCG/ML SYR ONE (11:34)
[2018-08-26] MEDS ORDERED: ePHEDrine SULFATE 25 MG/5 ML SYR ONE (11:39)
[2018-08-26] MEDS ORDERED: SUGAMMADEX SODIUM 200 MG/2 ML VIAL IVP ONE (12:43)
[2018-08-26] MEDS ORDERED: HYDROmorphONE/DILAUDID 2 MG/ML INJ IVP PRN (13:34)
[2018-08-26] MEDS ORDERED: ONDANSETRON 4 MG/2 ML VIAL IVP PRN (13:34)
[2018-08-26] MEDS ORDERED: DEXAMETHASONE 4 MG/ML VIAL IVP PRN (13:34)
[2018-08-26] MEDS ORDERED: MEPERIDINE 25 MG/0.5 ML AMP IVP PRN (13:34)
[2018-08-26] MEDS ORDERED: NALOXONE HCL 0.4 MG/ML INJ IVP PRN (13:34)
[2018-08-26] MEDS ORDERED: fentaNYL 100 MCG/2 ML INJ IVP PRN (13:34)
[2018-08-26] MEDS ORDERED: PROMETHAZINE HCL 25 MG/ML INJ IVP PRN (13:34)
[2018-08-26] MEDS ORDERED: HYDROCODONE/APAP 5/325 TAB PO PRN (13:34)
[2018-08-26] MEDS ORDERED: oxyCODONE IR 5 MG TAB PO PRN (13:34)
--- NOTE | 2018-08-26 13:36 | POSTANESTH ---
Post Anesthetic Evaluation Cardiovascular Status: Similar to Pre-Op Cond Respiratory Status: Similar to Pre-op Cond. Level of Consciousness/Mental Status: Can Participate in Eval, Mildly Sleepy, Arousable Pain Control: Adequate, Prn Tx Ordered Nausea/Vomiting Control: Adequate, Prn Tx Ordered Complications Possibly Related to Anesthesia: None Noted
[2018-08-26] MEDS ORDERED: oxyCODONE IR 5 MG TAB ONE (15:09)
[2018-08-26 16:24] VITALS: BP 113/68
--- NOTE | 2018-08-29 14:06 | GOP ---
[f rep st] OPERATIVE REPORT DATE OF OPERATION: 08/26/2018 SURGEON: Mario Alberto Contreras MD INTEGRATED PROGRAM TEACHER: KELLY Carter. ANESTHESIOLOGIST: China Basilio DO. PREOPERATIVE DIAGNOSIS: Left inguinal hernia. POSTOPERATIVE DIAGNOSIS: Bilateral inguinal hernias. PROCEDURE PERFORMED: Laparoscopic bilateral inguinal hernia repairs. FINDINGS: The patient was found to have a large indirect left inguinal hernia and a smaller indirect right inguinal hernia. ESTIMATED BLOOD LOSS: Negligible. DESCRIPTION OF PROCEDURE: The patient was taken to the operating room where he received satisfactory general endotracheal anesthesia. He was placed in the supine position, prepped and draped in the [facility] sterile fashion. An infraumbilical incision was made. Dissection was carried down to the rectus sheath, which was incised. A subfascial tunnel was developed in the preperitoneal space that was di ssected free with a balloon dissector, which was replaced with CO2 insufflation and trocar. Two othe r trocars were placed in the midline under direct vision. Dominic ligament was exposed bilaterally. The cords were mobilized bilaterally. Peritoneum was dissected off the cord structures. On the righ t, there was only a small indirect sac. On the left, there was a very large complete indirect sac ex tending down to the scrotum, which was rather tedious to reduce. Bilateral Covidien polyester mesh p atches were placed over the inguinal floor and anchored in place with an AbsorbaTack securing it to C ooper ligament, the lacunar ligament, the anterior abdominal wall, and the lateral abdominal wall out side the internal ring. On the left side, a split patch was used to pass the limb around the cord st ructures. Hemostasis was assured. Pneumopreperitoneum was released and trocars removed under direct vision. Trocar sites were closed with 0 Vicryl for the fascia, 4-0 Monocryl subcuticular stitch for the skin. All layers were infiltrated with 0.5% Marcaine. COMPLICATIONS: None. Taken to the recovery room in good condition. /[id number]/MODL
== END 2018-08-26 16:20 | disposition home or self-care (01) ==
LOC: FSGY 10:04
PROVIDERS: ATTEND Surgery
PROC: 0YU64JZ Supplement Left Inguinal Region with Synthetic Substitute, Percutaneous Endoscopic Approach (ICD-10-PCS; principal; 2018-08-26 11:23)
DX: K40.20 Bilateral inguinal hernia, without obstruction or gangrene, not specified as recurrent (principal); I48.91 Unspecified atrial fibrillation; M54.5 Low back pain; K21.9 Gastro-esophageal reflux disease without esophagitis; E78.1 Pure hyperglyceridemia; I27.20 Pulmonary hypertension, unspecified
CPT/HCPCS: C1727; C1781; J0690; J1100; J2001; J2250; J2370; J2405; J2704; J3010